=== PATIENT | female | born 1985 | race Native Hawaiian/Other Pacific Islander ===

== ENCOUNTER 2018-05-16 09:19 | Emergency (ER) | payer OTHER ==
[2018-05-16 09:22] VITALS: BMI 18.4
--- NOTE | 2018-05-16 11:20 | RAD ---
Date of service: 05/16/2018 HISTORY: possible admission COMPARISON: No prior. FINDINGS: LUNGS: No active pulmonary disease. PLEURA: No significant pleural effusion identified, no pneumothorax apparent. CARDIOVASCULAR: No aortic atherosclerotic calcification present. Normal cardiac size. No pulmonary vascular congestion. OSSEOUS STRUCTURES: No significant abnormalities. VISUALIZED UPPER ABDOMEN: Normal. OTHER FINDINGS: None. IMPRESSION: No active disease.
[2018-05-16 12:01] LABS: BASO % 0.2 % (0.0-2.0); HEMOGLOBIN 12.2 g/dL (12.0-16.0); LYMPH # 0.7 K/uL (1.0-4.3); LYMPH % 7.6 % (20.0-40.0); MEAN CELL VOLUME 95.5 fl (81.0-99.0); MEAN CORPUSCULAR HEMOGLOBIN 31.2 pg (27.0-31.0); MEAN CORPUSCULAR HGB CONC 32.7 g/dL (33.0-37.0); MEAN PLATELET VOLUME 8.8 fl (7.2-11.7); MONO # 0.6 K/uL (0.0-0.8); MONO % 7.4 % (0.0-10.0); NEUT # 7.4 K/uL (1.8-7.0); NEUT % 84.8 % (50.0-75.0); PLATELET COUNT 300 K/uL (130-400); RED CELL DISTRIBUTION WIDTH 13.1 % (11.5-14.5); WHITE BLOOD COUNT 8.7 K/uL (4.8-10.8)
[2018-05-16 12:06] LABS: BLOOD UREA NITROGEN 14 mg/dl (7-17); CALCIUM 9.1 mg/dL (8.4-10.2); GFR NON-AFRICAN AMERICAN > 60
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
[2018-05-16 13:35] LABS: LYMPHOCYTE 11 % (20-50); MONOCYTE 9 % (0-10); NEUTROPHIL 80 % (42-75); PLATELET ESTIMATE NORMAL (NORMAL); TOTAL CELLS COUNTED 100
--- NOTE | 2018-05-16 13:51 | CT ---
Date of service: 05/16/2018 PROCEDURE: CT HEAD WITHOUT CONTRAST. HISTORY: AMS COMPARISON: None available. TECHNIQUE: Axial computed tomography images were obtained through the head/brain without intravenous contrast. Radiation dose: Total exam DLP = 883.7 mGy-cm. This CT exam was performed using one or more of the following dose reduction techniques: Automated exposure control, adjustment of the mA and/or kV according to patient size, and/or use of iterative reconstruction technique. FINDINGS: HEMORRHAGE: No intracranial hemorrhage. BRAIN: No mass effect or edema. No atrophy or chronic microvascular ischemic changes. VENTRICLES: Unremarkable. No hydrocephalus. CALVARIUM: Unremarkable. PARANASAL SINUSES: Unremarkable as visualized. No significant inflammatory changes. MASTOID AIR CELLS: Unremarkable as visualized. No inflammatory changes. OTHER FINDINGS: None. IMPRESSION: No acute intracranial pathology.
[2018-05-16 14:44] LABS: SQUAMOUS EPITHIAL 1 /hpf (0-5); URINE BACTERIA RARE (<OCC)
[2018-05-16 14:57] LABS: BARBITURATES, UR NEGATIVE (NEGATIVE); BENZODIAZEPINES, UR NEGATIVE (NEGATIVE); OPIATES, UR NEGATIVE (NEGATIVE); PHENCYCLIDINE, UR NEGATIVE (NEGATIVE)
[2018-05-16 15:05] LABS: URINE BILIRUBIN NEGATIVE (NEGATIVE); URINE BLOOD MODERATE (NEGATIVE); URINE CLARITY Clear (Clear); URINE COLOR YELLOW (YELLOW); URINE GLUCOSE (UA) NEGATIVE (NEGATIVE); URINE PROTEIN NEGATIVE (NEGATIVE); URINE UROBILINOGEN 0.2 mg/dL (0.2-1.0)
[2018-05-16 15:06] LABS: URINE LEUKOCYTE ESTERASE TRACE Leu/uL (Negative)
--- NOTE | 2018-05-16 23:55 | CARD ---
APPROVED REPORT Date of service: 05/16/2018 EKG Measurement Heart [id number] <Conclusion> Normal sinus rhythm Normal ECG
--- NOTE | 2018-05-17 02:45 | ED PDOC ---
- Laboratory Results Result Diagrams: 05/16/18 11:11 05/16/18 11:11 Lab Results: Urine Color Yellow (YELLOW) 05/16/18 13:27 Urine Clarity Clear (Clear) 05/16/18 13:27 Urine pH 6.0 (5.0-8.0) 05/16/18 13:27 Ur Specific [place] 1.015 (1.003-1.030) 05/16/18 13:27 Urine Protein Negative mg/dL (NEGATIVE) 05/16/18 13:27 Urine Glucose (UA) Negative mg/dL (NEGATIVE) 05/16/18 13:27 Urine Ketones 40 mg/dL (NEGATIVE) 05/16/18 13:27 Urine Blood Moderate (NEGATIVE) 05/16/18 13:27 Urine Nitrate Negative (NEGATIVE) 05/16/18 13:27 Urine Bilirubin Negative (NEGATIVE) 05/16/18 13:27 Urine Urobilinogen 0.2 mg/dL (0.2-1.0) 05/16/18 13:27 Ur Leukocyte Esterase Trace [place]/uL (Negative) H 05/16/18 13:27 Urine RBC (Auto) 74 /hpf (0-3) H 05/16/18 13:27 Urine Microscopic WBC 4 /hpf (0-5) 05/16/18 13:27 Ur Squamous Epith Cells 1 /hpf (0-5) 05/16/18 13:27 Urine Bacteria Rare (<OCC) 05/16/18 13:27 - ECG O2 Sat by Pulse Oximetry: 100 (RA) Pulse Ox Interpretation: Normal Medical Decision Making Medical Decision Making: Time: 1900 -- Patient endorsed to me by Dr. Dorman, pending [facility] bed availability. Time: 0700 -- Patient endorsed to Dr. Blount, pending [facility] bed availability. Scribe Attestation: Documented by Abbi Pickens, acting as a scribe for Noah Hill MD. Provider Scribe Attestation: All medical record entries made by the Scribe were at my direction and personally dictated by me. I have reviewed the chart and agree that the record accurately reflects my personal performance of the history, physical exam, m edical decision making, and the department course for this patient. I have also personally directed, reviewed, and agree with the discharge instructions and disposition. Disposition - Clinical Impression Clinical Impression: Psychosis - POA Present On Arrival: None - Disposition Disposition: Transfer of Care Disposition Time: 07:00 Condition: FAIR Patient Signed Over To: Familia Blount Handoff Comments: pending [facility] bed availability
--- NOTE | 2018-05-17 07:14 | ED PDOC ---
- Laboratory Results Result Diagrams: 05/16/18 11:11 05/16/18 11:11 Lab Results: Urine Color Yellow (YELLOW) 05/16/18 13:27 Urine Clarity Clear (Clear) 05/16/18 13: Urine pH 6.0 (5.0-8.0) 05/16/18 13:27 Ur Specific [place] 1.015 (1.003-1.030) 05/16/18 13:27 Urine Protein Negative mg/dL (NEGATIVE) 05/16/18 13: Urine Glucose (UA) Negative mg/dL (NEGATIVE) 05/16/18 13: Urine Ketones 40 mg/dL (NEGATIVE) 05/16/18 13:27 Urine Blood Moderate (NEGATIVE) 05/16/18 13: Urine Nitrate Negative (NEGATIVE) 05/16/18 13: Urine Bilirubin Negative (NEGATIVE) 05/16/18 13: Urine Urobilinogen 0.2 mg/dL (0.2-1.0) 05/16/18 13:27 Ur Leukocyte Esterase Trace [place]/uL (Negative) H 05/16/18 13:27 Urine RBC (Auto) 74 /hpf (0-3) H 05/16/18 13:27 Urine Microscopic WBC 4 /hpf (0-5) 05/16/18 13:27 Ur Squamous Epith Cells 1 /hpf (0-5) 05/16/18 13: Urine Bacteria Rare (<OCC) 05/16/18 13:27 - ECG O2 Sat by Pulse Oximetry: 100 Medical Decision Making Medical Decision Making: Time: 0700 Patient endorsed to provider from Noah Hill MD. Pending [facility] bed availability. Scribe Attestation: Documented by Adrien Roberts, acting as a scribe for Familia Blount MD. Provider Scribe Attestation: All medical record entries made by the Scribe were at my direction and personally dictated by me. I have reviewed the chart and agree that the record accurately reflects my personal performance of the history, physical exam, medical decision making, and the department course for this patient. I have also personally directed, reviewed, and agree with the discharge instructions and disposition. Disposition Counseled Patient/Family Regarding: Studies Performed, Diagnosis - Clinical Impression Clinical Impression: Psychosis - POA Present On Arrival: None - Disposition Disposition: Other Institution ([facility]) Disposition Time: 10:30 Condition: STABLE
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
[2018-05-17 11:02] VITALS: BP 112/60; PULSE 90; RESP 18; TEMP 98.7
[2018-05-19 22:13] VITALS: O2SAT 100
== END 2018-05-17 11:01 | disposition short-term general hospital (02) ==
LOC: H.ER 09:19 → MERGE 09:19 → H.ER 05-17 11:01
DX: F23 Brief psychotic disorder (principal); Z86.59 Personal history of other mental and behavioral disorders; Z00.8 Encounter for other general examination